=== PATIENT | female | born 1970 | race Caucasian/White ===

== ENCOUNTER 2019-01-21 10:14 | Day surgery (SDC) | payer OTHER ==
[2019-01-15 15:02] VITALS: BMI 47.2
[~2019-01-21 10:14] MED LIST: LIDOCAINE 1% 20 ML VIAL (10MG/ML) FOR IV START INTRADERMA PRN
[2019-01-21 10:46] VITALS: RESP 18; TEMP 98.8
[2019-01-21] MEDS: LACTATED RINGERS 1,000 ML IV SCH ×2 (10:55→11:02)
[2019-01-21] MEDS ORDERED: PROPOFOL 10 MG/ML 20 ML VIAL IV ONE (11:23)
--- NOTE | 2019-01-21 11:58 | P.PCN ---
Date of Procedure: 01/21/19 Description of Procedure: BRIEF HISTORY: Patient is a 48-year-old pleasant female scheduled for an elective colonoscopy as a part of screening for malignant neoplasm of the colon. No prior colonoscopies. No change in bowel habits, blood per rectum or abdominal pain. Family history of colon cancer in her mother was diagnosed in her 70s. PROCEDURE PERFORMED: Colonoscopy with polypectomy. PREOPERATIVE DIAGNOSIS: Screening for malignant neoplasm of the colon, no prior colonoscopy reported. Patient's mother diagnosed with colon cancer in her 70s. ESTIMATED BLOOD LOSS: Minimal. IV sedation per Anesthesia. PROCEDURE: After informed consent was obtained, the patient, was brought into the endoscopy unit. IV sedation was administered by Anesthesia under continuous monitoring. Digital rectal examination was normal. Initially the Olympus CF-190 flexible video colonoscope was then inserted in the rectum, gradually advanced into the cecum without any difficulty. Careful examination was performed as the scope was gradually being withdrawn. Ileocecal valve and the appendiceal orifice were visualized and appeared normal. The terminal ileum was intubated and appeared normal. Prep was excellent. Mucosa of the cecum, ascending colon, transverse colon, descending colon, sigmoid colon, and rectum appeared normal with 1 diminutive 2 mm transverse colon polyp removed with cold forcep polypectomy. Retroflexion was performed in the rectum and no lesions were seen. The patient tolerated the procedure well. IMPRESSION: Diminutive transverse colon polyp removed with forceps polypectomy Normal-appearing colon from rectum to cecum. RECOMMENDATIONS: Findings of this examination were discussed with the patient, her mother and father. Okay to resume diet and medications. Await pathology from polypectomy. Recommend repeat colonoscopy in 5 years for family history of colon cancer pending pathology from polypectomy.
[2019-01-21 12:16] VITALS: BP 137/78; PULSE 67
== END 2019-01-21 12:46 | disposition home or self-care (01) ==
LOC: ORWHC2ENDO 10:14
PROVIDERS: ATTEND Internal Medicine
DX: Z12.11 Encounter for screening for malignant neoplasm of colon (principal); D12.3 Benign neoplasm of transverse colon; I10 Essential (primary) hypertension; E78.5 Hyperlipidemia, unspecified; E07.9 Disorder of thyroid, unspecified; Z80.0 Family history of malignant neoplasm of digestive organs; Z79.890 Hormone replacement therapy; Z79.899 Other long term (current) drug therapy; Z98.890 Other specified postprocedural states; Z90.49 Acquired absence of other specified parts of digestive tract; Z88.0 Allergy status to penicillin
CPT/HCPCS: 81025; 45380; J2704; 88305

== ENCOUNTER → 2021-12-31 | Outpatient (CLI) | payer BC, OTHER ==
--- NOTE | 2022-01-03 19:34 | MM ---
Reason for Exam: Screening (asymptomatic). Last mammogram was performed 3 year(s) and 11 month(s) ago. Patient History: Maternal aunt had breast cancer, age 65. Maternal grandmother had breast cancer. Risk Values: Debra 5 year model risk: 0.7%. NCI Lifetime model risk: 5.7%. Prior Study Comparison: 02/08/2018 Bilateral MG 3D screening mammo w/cad, [facility]. Tissue Density: There are scattered fibroglandular densities. Findings: Analyzed By CAD. Low axillary tail lymph node on the right. Scattered benign punctate calcifications on both sides are generally benign. There is no suspicious group of microcalcifications or new suspicious mass in either breast. Overall Assessment: Benign, BI-RAD 2 Management: Screening Mammogram of both breasts in 1 year. 1. Patient should continue monthly self breast exams. 2. A clinical breast exam by your physician is recommended on an annual basis. 3. This exam should not preclude additional follow-up of suspicious palpable abnormalities. Electronically signed and approved by: Tee Fuentes M.D. Radiologist
== END | disposition home or self-care (01) ==
LOC: RADMAMWWP 15:51
PROVIDERS: ATTEND Family Medicine
DX: Z12.31 Encounter for screening mammogram for malignant neoplasm of breast (principal); Z80.3 Family history of malignant neoplasm of breast
CPT/HCPCS: 77063; 77067

== ENCOUNTER 2022-01-18 11:43 | Emergency (ER) | payer BC ==
[2022-01-18 11:49] VITALS: TEMP 97
[2022-01-18] MEDS ORDERED: SODIUM CHLORIDE 0.9% 1,000 ML IV ONE (12:00)
[2022-01-18 12:37] LABS: Basophils # (A) 0.1 k/uL (0-0.2); Basophils % (A) 1 %; Eosinophils # (A) 0.1 k/uL (0-0.7); Eosinophils % (A) 1 %; HCT 42.5 % (34.0-46.0); HGB 14.2 gm/dL (11.4-16.0); Lymphocytes % (A) 27 %; MCH 29.3 pg (25.0-35.0); MCHC 33.4 g/dL (31.0-37.0); MCV 87.6 fL (80.0-100.0); Mean Platelet Volume 7.7; Monocytes # (A) 0.3 k/uL (0-1.0); Monocytes % (A) 5 %; Neutrophils # (A) 4.7 k/uL (1.3-7.7); Neutrophils % (A) 65 %; Platelet Count 275 k/uL (150-450); RBC 4.85 m/uL (3.80-5.40); RDW 12.2 % (11.5-15.5); WBC 7.2 k/uL (3.8-10.6)
[2022-01-18 12:50] LABS: Appearance,Urine Cloudy (Clear); Bilirubin,Urine Negative (Negative); Blood,Urine Large (Negative); Color,Urine Light Red; Glucose,Urine (UA) Negative (Negative); Ketones,Urine Negative (Negative); Leukocyte Esterase,Urine Moderate (Negative); Nitrite,Urine Negative (Negative); PH, Urine 5.5 (5.0-8.0); Protein,Urine 1+ (Negative); RBC,Urine >182 /hpf (0-5); Specific Gravity,Urine 1.017 (1.001-1.035); Urobilinogen,Urine <2.0 mg/dL (<2.0); WBC,Urine 17 /hpf (0-5)
[2022-01-18 12:59] LABS: ALT 26 U/L (4-34); AST 25 U/L (14-36); African American GFR (CKD) >90 (>60 ml/min/1.73 sqM); Albumin 4.5 g/dL (3.5-5.0); Alkaline Phosphatase 99 U/L (38-126); Anion Gap 9 mmol/L; Blood Urea Nitrogen 16 mg/dL (7-17); Calcium 8.9 mg/dL (8.4-10.2); Carbon Dioxide 24 mmol/L (22-30); Chloride 105 mmol/L (98-107); Glucose 124 mg/dL (74-99); Non-African American GFR(CKD) >90 (>60 ml/min/1.73 sqM); Sodium 138 mmol/L (137-145); Total Protein 7.3 g/dL (6.3-8.2)
[2022-01-18 13:02] LABS: Partial Thromboplastin Time 23.6 sec (22.0-30.0); Prothrombin Time 10.6 sec (9.0-12.0)
[2022-01-18 13:04] LABS: Potassium 4.9 mmol/L (3.5-5.1)
--- NOTE | 2022-01-18 13:12 | ED ---
General Adult HPI - General Chief complaint: Vaginal Bleeding Stated complaint: vaginal bleeding Time Seen by Provider: 01/18/22 11:59 Source: patient Mode of arrival: wheelchair Limitations: no limitations - History of Present Illness Initial comments: Patient is a 51-year-old female presenting with chief complaint of vaginal bleeding. Patient was being seen in the [facility] by Dr. Coleman for an annual exam. Patient has never seen an EVALUATION SPECIALIST, she has never been , and she has never had intercourse. She believes that her last period was 6 months ago or greater. Patient states that last Monday she was experiencing heavy vaginal bleeding, she has had episodes like this in the past, states that has never had a formal diagnosis for this. Dr. Coleman states that when he started the bimanual exam patient began heavily bleeding. He expressed concern for possible mass felt on bimanual exam. Patient was sent down here from [facility]. By time of arrival patient states that bleeding had stopped. She is asymptomatic. No abdominal pain, chest pain, difficulty breathing, palpitations, weakness, dizziness, diaphoresis, nausea, vomiting, dysuria, hematuria, flank pain, fever, chills. - Related Data Home Medications Medication Instructions Recorded Confirmed Atorvastatin Calcium 20 mg PO HS 01/18/22 01/18/22 Levothyroxine Sodium [Synthroid] 50 mcg PO DAILY 01/18/22 01/18/22 lisinopriL [Zestril] 20 mg PO DAILY 01/18/22 01/18/22 Allergies Allergy/AdvReac Type Severity Reaction Status Date / Time Penicillins AdvReac states Verified 01/18/22 13:17 "does not take r/t both parents having allergy" Review of Systems ROS Statement: Those systems with pertinent positive or pertinent negative responses have been documented in the HPI. ROS Other: All systems not noted in ROS Statement are negative. Past Medical History Past Medical History: Hyperlipidemia, Hypertension, Thyroid Disorder History of Any Multi-Drug Resistant Organisms: None Reported Past Surgical History: Cholecystectomy, Orthopedic Surgery Additional Past Surgical History / Comment(s): left knee arthroscopy Past Anesthesia/Blood Transfusion Reactions: No Reported Reaction Past Psychological History: No Psychological Hx Reported Smoking Status: Never smoker Past Alcohol Use History: Occasional Past Drug Use History: None Reported - Past Family History Mother Family Medical History: Cancer Additional Family Medical History / Comment(s): colon General Exam Limitations: no limitations General appearance: alert, in no apparent distress Head exam: Present: atraumatic, normocephalic, normal inspection Eye exam: Present: normal appearance Neck exam: Present: normal inspection, full ROM Respiratory exam: Present: normal lung sounds bilaterally. Absent: respiratory distress, wheezes, rales, rhonchi, stridor Cardiovascular Exam: Present: regular rate, normal rhythm, normal heart sounds. Absent: systolic murmur, diastolic murmur, rubs, gallop, clicks Neurological exam: Present: alert, oriented X3, CN II-XII intact Psychiatric exam: Present: normal affect, normal mood Skin exam: Present: warm, dry, intact, normal color. Absent: rash Course Vital Signs 01/18/22 01/18/22 01/18/22 11:46 13:15 14:55 Temperature 97 F L Pulse Rate 85 71 94 Respiratory 20 18 18 Rate Blood Pressure 153/78 141/76 148/76 O2 Sat by Pulse 99 97 95 Oximetry 01/18/22 15:49 Temperature Pulse Rate 92 Respiratory 18 Rate Blood Pressure 142/84 O2 Sat by Pulse 96 Oximetry Medical Decision Making - Medical Decision Making Patient is a 51-year-old female presenting from the [facility] woman sent her after spontaneous heavy vaginal bleeding and irregular bimanual exam performed by Dr. Coleman. Upon arrival to the ER patient states bleeding has stopped, on exam ination I see no evidence of current bleeding. Patient denies any abdominal pain, lightheadedness, chest pain, difficulty breathing. Lab work shows hemoglobin 14.2. WBC 7.2. CMP and coags are unremarkable. Urine is positive for blood, due to vaginal bleeding. Patient is blood type A positive. Ultrasound shows signs of soft tissue fullness in the left adnexal region, interpreted by myself. I discussed these findings with EVALUATION SPECIALIST micromatic hone operator Dr. Owens, who advised that the patient should follow-up in the office, no need for further testing at this time. Educated patient on these findings and the importance of prompt follow-up. Patient states that her EVALUATION SPECIALIST Dr. Coleman does not perform surgery, she is also provided with the contact information for EVALUATION SPECIALIST on-call Dr. Owens. Follow-up with PCP. Report back to ER with any new or worsening symptoms. Discussed return parameters and answered all questions. Patient conveyed verbal understanding and agreed to the plan. I discussed this case in detail with my attending Dr. Bravo - Lab Data Result diagrams: 01/18/22 12:26 01/18/22 12:26 Lab Results 01/18/22 01/18/22 01/18/22 Range/Units 12:26 12:26 12:26 WBC 7.2 (3.8-10.6) k/uL RBC 4.85 (3.80-5.40) m/uL Hgb 14.2 (11.4-16.0) gm/dL Hct 42.5 (34.0-46.0) % MCV 87.6 (80.0-100.0) fL MCH 29.3 (25.0-35.0) pg MCHC 33.4 (31.0-37.0) g/dL RDW 12.2 (11.5-15.5) % Plt Count 275 (150-450) k/uL MPV 7.7 Neutrophils % 65 % Lymphocytes % 27 % Monocytes % 5 % Eosinophils % 1 % Basophils % 1 % Neutrophils # 4.7 (1.3-7.7) k/uL Lymphocytes # 2.0 (1.0-4.8) k/uL Monocytes # 0.3 (0-1.0) k/uL Eosinophils # 0.1 (0-0.7) k/uL Basophils # 0.1 (0-0.2) k/uL PT (9.0-12.0) sec INR (<1.2) APTT (22.0-30.0) sec Sodium 138 (137-145) mmol/L Potassium 4.9 (3.5-5.1) mmol/L Chloride 105 (98-107) mmol/L Carbon Dioxide 24 (22-30) mmol/L Anion Gap 9 mmol/L BUN 16 (7-17) mg/dL Creatinine 0.69 (0.52-1.04) mg/dL Est GFR (CKD-EPI)AfAm >90 (>60 ml/min/1.73 sqM) Est GFR (CKD-EPI)NonAf >90 (>60 ml/min/1.73 sqM) Glucose 124 H (74-99) mg/dL Calcium 8.9 (8.4-10.2) mg/dL Total Bilirubin 1.0 (0.2-1.3) mg/dL AST 25 (14-36) U/L ALT 26 (4-34) U/L Alkaline Phosphatase 99 (38-126) U/L Total Protein 7.3 (6.3-8.2) g/dL Albumin 4.5 (3.5-5.0) g/dL Urine Color Light Red Urine Appearance Cloudy H (Clear) Urine pH 5.5 (5.0-8.0) Ur Specific [place] 1.017 (1.001-1.035) Urine Protein 1+ H (Negative) Urine Glucose (UA) Negative (Negative) Urine Ketones Negative (Negative) Urine Blood Large H (Negative) Urine Nitrite Negative (Negative) Urine Bilirubin Negative (Negative) Urine Urobilinogen <2.0 (<2.0) mg/dL Ur Leukocyte Esterase Moderate H (Negative) Urine RBC >182 H (0-5) /hpf Urine WBC 17 H (0-5) /hpf Blood Type Blood Type Confirm Blood Type Recheck Bld Type Recheck Status Antibody Screen Spec Expiration Date 01/18/22 01/18/22 01/18/22 Range/Units 12:26 12:35 12:40 WBC (3.8-10.6) k/uL RBC (3.80-5.40) m/uL Hgb (11.4-16.0) gm/dL Hct (34.0-46.0) % MCV (80.0-100.0) fL MCH (25.0-35.0) pg MCHC (31.0-37.0) g/dL RDW (11.5-15.5) % Plt Count (150-450) k/uL MPV Neutrophils % % Lymphocytes % % Monocytes % % Eosinophils % % Basophils % % Neutrophils # (1.3-7.7) k/uL Lymphocytes # (1.0-4.8) k/uL Monocytes # (0-1.0) k/uL Eosinophils # (0-0.7) k/uL Basophils # (0-0.2) k/uL PT 10.6 (9.0-12.0) sec INR 1.0 (<1.2) APTT 23.6 (22.0-30.0) sec Sodium (137-145) mmol/L Potassium (3.5-5.1) mmol/L Chloride (98-107) mmol/L Carbon Dioxide (22-30) mmol/L Anion Gap mmol/L BUN (7-17) mg/dL Creatinine (0.52-1.04) mg/dL Est GFR (CKD-EPI)AfAm (>60 ml/min/1.73 sqM) Est GFR (CKD-EPI)NonAf (>60 ml/min/1.73 sqM) Glucose (74-99) mg/dL Calcium (8.4-10.2) mg/dL Total Bilirubin (0.2-1.3) mg/dL AST (14-36) U/L ALT (4-34) U/L Alkaline Phosphatase (38-126) U/L Total Protein (6.3-8.2) g/dL Albumin (3.5-5.0) g/dL Urine Color Urine Appearance (Clear) Urine pH (5.0-8.0) Ur Specific [place] (1.001-1.035) Urine Protein (Negative) Urine Glucose (UA) (Negative) Urine Ketones (Negative) Urine Blood (Negative) Urine Nitrite (Negative) Urine Bilirubin (Negative) Urine Urobilinogen (<2.0) mg/dL Ur Leukocyte Esterase (Negative) Urine RBC (0-5) /hpf Urine WBC (0-5) /hpf Blood Type A Positive Blood Type Confirm A Positive Blood Type Recheck No Previous Record Bld Type Recheck Status CABO Indicated Antibody Screen NEGATIVE Spec Expiration Date 01/21/20222325 Disposition Clinical Impression: Ovarian mass, Dysfunctional uterine bleeding Disposition: HOME SELF-CARE Condition: Fair Instructions (If sedation given, give patient instructions): Abnormal (Dy sfunctional) Uterine Bleeding (ED) Additional Instructions: Follow-up with EVALUATION SPECIALIST. Report back to ER with any new or worsening symptoms. Ideally he will follow-up with your EVALUATION SPECIALIST, if you are unable to I have provided another suggestion. Is patient prescribed a controlled substance at d/c from ED?: No Referrals: Fara Mccoy DO [Primary Care Provider] - 1-2 days River Coleman MD [STAFF PHYSICIAN] - 1-2 days Diana Owens MD [STAFF PHYSICIAN] - 1-2 days Time of Disposition: 15:31
[2022-01-18 13:17] VITALS: RESP 18
--- NOTE | 2022-01-18 14:27 | US ---
EXAMINATION TYPE: US pelvic complete DATE OF EXAM: 01/18/2022 COMPARISON: NONE CLINICAL HISTORY: heavy vaginal bleeding. Heavy vaginal bleeding. LMP unknown. G0. TECHNIQUE: Transabdominal (TA). Transabdominal sonographic images of the pelvis were acquired. Tra nsvaginal sonographic images were deferred per order. Date of LMP: Unknown. EXAM MEASUREMENTS: Uterus: 11.3 x 7.5 x 6.3 cm Endometrial Stripe: 1.66 cm Right Ovary: Not seen Left Ovary: Not seen with certainty 1. Uterus: Retroverted Appears heterogeneous. 2. Endometrium: Measures 1.66 cm, LMP unknown. 3. Right Ovary: Not seen 4. Left Ovary: Not seen with certainty. 5. Bilateral Adnexa: Hypoechoic area seen left adnexa versus attached to the uterus, versus possible enlarged left ovary (volume greater than 21 ml). Area measures 4.7 x 4.5 x 3.7 cm and arterial and v enous flow is seen within. 6. Posterior cul-de-sac: Appears wnl Urinary bladder is unremarkable. IMPRESSION: 1. There is a solid soft tissue fullness in the left adnexal region. No Definite confirmation this is left ovary. Follow-up is recommended. Consider MRI.
[2022-01-18 15:51] VITALS: BP 142/84; PULSE 92
[2022-01-19 13:01] LABS: C. trachomatis,PCR Negative (Neg,Equiv); Chlamydia trachomatis Source Urine; N. gonorrhoeae,PCR Negative (Neg,Equiv); Neisseria Source Urine
== END 2022-01-18 15:58 | disposition home or self-care (01) ==
LOC: EC 11:43
DX: N83.202 Unspecified ovarian cyst, left side (principal); I10 Essential (primary) hypertension; E07.9 Disorder of thyroid, unspecified; E78.5 Hyperlipidemia, unspecified; Z88.0 Allergy status to penicillin; Z79.890 Hormone replacement therapy; Z79.899 Other long term (current) drug therapy
CPT/HCPCS: 36415; 76856; 80053; 81001; 85025; 85610; 85730; 86850; 86900; 86901; 87086; 87491; 87591; 96360; 96361; 99284

== ENCOUNTER → 2022-01-18 | Outpatient (CLI) | payer BC ==
[2022-01-18 10:02] VITALS: BP 158/87; PULSE 84; RESP 18; TEMP 98.7
--- NOTE | 2022-01-18 11:52 | P.HPOB ---
History of Present Illness H&P Date: 01/18/22 Chief Complaint: Heavy vaginal bleeding 2 weeks ago. This is a 51-year-old G0 with an LNMP of 2019. The patient is here to establish with this office. She states she has never been sexually active and has never had a pelvic exam in her lifetime. Her menstrual periods were regular every month up until about 3 years ago. Periods then became very light and just spotting, but would occur about monthly. During the past 1-1/2 years, menstrual periods became irregular and the spotting would only occur when she did more strenuous activity. Between June 2021 and now she did not have any vaginal bleeding except for 1 heavy episode 2 weeks ago. She states she had sudden h eavy bleeding from the vagina that seemed to decrease as the day when on. The bleeding then stopped after about 1 day. She states she has not had any bleeding today. She denies hot flashes. She denies inserting anything into the vagina. Review of Systems The patient's weight has been stable over the last year. She denies respiratory, cardiac, or G.I. problems. Past Medical History Past Medical History: Hyperlipidemia, Hypertension, Thyroid Disorder Additional Past Medical History / Comment(s): Hypothyroidism. PAST CMM INSPECTOR HISTORY: She has no history of STDs. She states she has never been sexually active and has never had a pelvic exam in the past. History of Any Multi-Drug Resistant Organisms: None Reported Past Surgical History: Cholecystectomy, Orthopedic Surgery Additional Past Surgical History / Comment(s): left knee arthroscopy. Colonoscopy 2018(next after 5yr) Past Anesthesia/Blood Transfusion Reactions: No Reported Reaction Past Psychological History: No Psychological Hx Reported Smoking Status: Never smoker Past Alcohol Use History: Occasional (1 or 2 per month) Past Drug Use History: None Reported Additional History: She is single and has never been sexually active. She lives on her own. 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 - Past Family History Mother Family Medical History: Cancer Additional Family Medical History / Comment(s): colon cancer. Maternal aunt and maternal grandmother had breast cancer. Father Family Medical History: No Reported History Medications and Allergies Home Medications Medication Instructions Recorded Confirmed Type Atorvastatin [Lipitor] 10 mg PO DAILY 01/04/19 01/18/22 History Levothyroxine Sodium [Synthroid] 100 mcg PO DAILY 01/04/19 01/18/22 History lisinopriL [Zestril] 5 mg PO QAM 01/04/19 01/18/22 History Allergies Allergy/AdvReac Type Severity Reaction Status Date / Time Penicillins AdvReac states Verified 01/18/22 09:58 "does not take r/t both parents having allergy" Exam Vital Signs Temp Pulse Resp BP Pulse Ox 01/18/22 09:59 98.7 F 84 18 158/87 98 Intake and Output 01/17/22 01/18/22 01/18/22 22:59 06:59 14:59 Other: Weight 129.274 kg Height 5 feet 5 inches, weight 285 pounds, BMI 47.4. This is a well-developed well-nourished heavyset white female who is alert and oriented times 3 in no acute distress. HEENT: Within normal limits. NECK: Supple without mass or thyromegaly. CHEST AND LUNGS: Clear to auscultation. HEART: Regular rate and rhythm. BREASTS: Are without mass or discharge. AXILLARY EXAM: Negative for adenopathy. BACK: Negative for CVA tenderness. ABDOMEN: Soft, obese, nontender, without palpable masses. PELVIC EXAM: Normal external genitalia. The introitus is virginal with the hymenal ring opening measuring approximately 2 cm. Upon initial exam, no vaginal bleeding was noted at the external genitalia. A Kovacs speculum was painlessly inserted into the vagina and sudden bright red bleeding was noted from the vagina. The vagina could not be visualized due to the immediate bleeding. Bimanual examination: There seems to be an abnormal mass in the vagina which is firm and irregular and nontender. The mass does not seem to be consistent with a normal cervix. An approximate size of the mass would be 4 x 3 x 5 cm. Because of her size, the uterus could not be palpated. No adnexal masses were palpated, but bimanual examination is very limited secondary to her size. There is active bleeding with a 4 cm blood clot being removed at the time of the exam. RECTAL EXAM: Rectal exam was not performed because of the acute vaginal bleeding noted. EXTREMITIES: Nontender. The patient remains alert and oriented 3. Repeat vital signs include a blood pressure of 146/85, pulse of 91 and pulse oximeter of 98%.(11:22am) IMPRESSION: 1. 51-year-old perimenopausal virginal female who has never had a pelvic exam in her lifetime with recent heavy vaginal bleeding 2 weeks ago and sudden acute vaginal bleeding when a Kovacs speculum was inserted into the vagina. There seems to be an abnormal vaginal mass which could be vaginal or cervical in nature. Bleeding is most likely coming from a friable abnormal neoplasm in the vagina. I do not believe the bleeding came from the hymenal ring. Endometrial neoplasia would also be in the differential diagnosis. PLAN: 1. The patient has been sent to the emergency room at [facility]. I have spoken with the emergency room doctor, Dr. Bravo. I have recommended that she see the INFANTRY INDIRECT FIRE CREWMEMBER doctor of the month software application tester to be evaluated, and if acute vaginal bleeding persists, for possible surgical intervention. 2. I was informed that [facility] INFANTRY INDIRECT FIRE CREWMEMBER is covering the emergency room and I have left messages with their office hoping I can discuss this unusual case with the doctor software application tester.
== END ==
LOC: WWCWWP 09:49
PROVIDERS: ATTEND Obstetrics & Gynecology
DX: Z01.419 Encounter for gynecological examination (general) (routine) without abnormal findings (principal); Z88.0 Allergy status to penicillin

== ENCOUNTER → 2022-02-24 | Outpatient (CLI) | payer BC ==
--- NOTE | 2022-02-26 10:22 | MR ---
EXAMINATION TYPE: MR pelvis wo/w con DATE OF EXAM: 02/24/2022 COMPARISON: 01/18/2022 ultrasound CLINICAL INDICATION:Female, 52 years old with history of N88.8 NONINFLAMMATORY DISORDERS OF CERVIX UT YOJANA; TECHNIQUE: Triplane multisequence imaging was performed of the pelvis. IV Contrast: 13ML cc Gadavist FINDINGS: Reproductive: The uterus is anteverted in position. Arcuate morphology to the uterine fundus. Uterus measures 6.6 x 5.4 x 8.3 cm. Multiple uterine fibroids are identified, the largest on the left measuring up to 6.1 x 5.0 cm and on the right measuring 3.6 x 3.4 cm both which are slightly exophytic. Both demonstrate postcontrast enhancement. There is soft tissue which is thought to be originating from the endometrium and extending down throu gh the cervical canal and into the vagina. Soft tissue extends approximately 4.5 cm from the external cervical os up into the the endometrium. Overall this area measures approximately 5.6 x 6.5 x 5.5 cm . There is postcontrast enhancement of this lesion. This lesion does not definitively invade through cervix or vagina wu. The left ovary measures 2.3 x 1.8 x 1.2 cm. The right ovary measures 2.2 x 1.5 x 1.5 cm. Bladder: Unremarkable. Bowel: Unremarkable as visualized. Peritoneum: A small amount of free fluid in the pelvis. Lymph nodes: Prominent nonenlarged right common iliac lymph node measuring up to 6 mm Vasculature: Unremarkable. Musculoskeletal: Bone marrow signal is within normal signal intensity. Abdominal wall/soft tissues: Unremarkable. IMPRESSION: 1. Enhancing mass which extends from the endometrium down into and through the cervical canal into t he vagina. Findings concerning for malignancy. Visualization with tissue sampling is recommended. No definitive invasion into the vagina, cervix, or uterus. Single nonspecific mildly enlarged right exte rnal iliac lymph node. Gynecology oncology consultation recommended. 2. Fibroid uterus.
== END | disposition home or self-care (01) ==
LOC: RADMRIMAIN 12:16
PROVIDERS: ATTEND Obstetrics & Gynecology
DX: D25.9 Leiomyoma of uterus, unspecified (principal); N88.8 Other specified noninflammatory disorders of cervix uteri; N94.89 Other specified conditions associated with female genital organs and menstrual cycle; N93.9 Abnormal uterine and vaginal bleeding, unspecified; R59.0 Localized enlarged lymph nodes
CPT/HCPCS: 72197; A9585

== ENCOUNTER → 2023-06-05 | Outpatient (CLI) | payer BC ==
--- NOTE | 2023-06-05 23:28 | MM ---
Reason for Exam: Screening (asymptomatic). Last mammogram was performed 1 year(s) and 5 month(s) ago. Patient History: Menarche at age 11. Patient has no children. Left ovary removed at age 53. Right ovary removed at age 53. Hysterectomy at age 53. Postmenopausal. Maternal aunt had breast cancer, age 65. Maternal grandmother had breast cancer, age 65. Risk Values: Debra 5 year model risk: 1.3%. NCI Lifetime model risk: 9.1%. Prior Study Comparison: 02/08/2018 Bilateral MG 3D screening mammo w/cad, [facility]. 12/31/2021 Bilateral MG 3D screening mammo w/cad, [facility]. Tissue Density: There are scattered areas of fibroglandular density. Findings: Analyzed By CAD. The pattern is symmetrical. No significant interval change is evident. Punctate calcifications are scattered through the right breast. Chronic nodularity is within the right breast. Within the left breast craniocaudal view there is a new nodule measuring 0.4 cm located 6 cm from the nipple. Compression views recommended for possible summation density. Right breast:No suspicious groups of microcalcifications, spiculated or lobular masses, architectural distortion or other secondary signs of malignancy are mammographically apparent. Overall Assessment: Incomplete: need additional imaging evaluation, BI-RAD 0 Management: Diagnostic Mammogram of the left breast. A negative mammogram report should not preclude additional follow up of suspicious palpable abnormalities. Patient should continue monthly self breast exam. A clinical breast exam by your physician is recommended on an annual basis and results should be correlated with mammographic findings. Electronically signed and approved by: Quentin Stone D.O. Radiologis
== END | disposition home or self-care (01) ==
LOC: RADMAMWWP 15:56
PROVIDERS: ATTEND Obstetrics & Gynecology
DX: Z12.31 Encounter for screening mammogram for malignant neoplasm of breast (principal); Z80.3 Family history of malignant neoplasm of breast; Z78.0 Asymptomatic menopausal state
CPT/HCPCS: 77063; 77067

== ENCOUNTER → 2023-06-07 | Outpatient (CLI) | payer BC ==
--- NOTE | 2023-06-07 07:39 | MM ---
Reason for Exam: Additional evaluation requested from abnormal screening. Last screening mammogram was performed less than 1 month ago. Patient History: Menarche at age 11. Patient has no children. Left ovary removed at age 53. Right ovary removed at age 53. Hysterectomy at age 53. Postmenopausal. Maternal aunt had breast cancer, age 65. Maternal grandmother had breast cancer, age 65. Risk Values: Debra 5 year model risk: 1.3%. NCI Lifetime model risk: 9.1%. Prior Study Comparison: 02/08/2018 Bilateral MG 3D screening mammo w/cad, [facility]. 12/31/2021 Bilateral MG 3D screening mammo w/cad, [facility]. 06/05/2023 Bilateral MG 3D screening mammo w/cad, [facility]. Tissue Density: Left: There are scattered areas of fibroglandular density. Findings: Analyzed By CAD. Under compression there may be a small persistent density on the craniocaudal view. A discrete abnormality is not identified on the medial lateral. Suspicious be at the 11 to 12:00 position 6 cm from the nipple. Ultrasound is recommended for additional workup. Overall Assessment: Incomplete: need additional imaging evaluation, BI-RAD 0 Management: Diagnostic Breast Ultrasound of the left breast. A negative mammogram report should not preclude additional follow up of suspicious palpable abnormalities. Patient should continue monthly self breast exam. A clinical breast exam by your physician is recommended on an annual basis and results should be correlated with mammographic findings. Note on Debra scores and lifetime risk: 1. A Debra score greater than 3% is considered moderate risk. If this is the case, consider specialist referral to assess eligibility for a risk reducing agent. 2. If overall lifetime risk for the development of breast cancer is 20% or higher, the patient may qualify for future screening with alternating mammogram and breast MRI. Electronically signed and approved by: Quentin Stone D.O. Radiologis
--- NOTE | 2023-06-07 08:01 | USB ---
Reason for Exam: Additional evaluation requested from abnormal screening. Patient History: Menarche at age 11. Patient has no children. Left ovary removed at age 53. Right ovary removed at age 53. Hysterectomy at age 53. Postmenopausal. Maternal aunt had breast cancer, age 65. Maternal grandmother had breast cancer, age 65. Risk Values: Debra 5 year model risk: 1.3%. NCI Lifetime model risk: 9.1%. Technique: Method: Targeted. Doppler: Color. Patient Position: Supine. Prior Study Comparison: 02/08/2018 Bilateral MG 3D screening mammo w/cad, [facility]. 12/31/2021 Bilateral MG 3D screening mammo w/cad, [facility]. 06/05/2023 Bilateral MG 3D screening mammo w/cad, [facility]. Findings: The upper inner quadrant of the left breast, the axilla of the left breast and the retroareolar of the left breast were scanned. 4 cm nabothian 11:00 position is a very tiny cyst. No suspicious solid masses are evident.. Overall Assessment: Benign, BI-RAD 2 Management: Diagnostic Mammogram of the left breast in 6 months. A clinical breast exam by your physician is recommended on an annual basis and results should be correlated with mammographic findings. This exam should not preclude additional follow-up of suspicious palpable abnormalities. Results were given to the patient verbally at the time of exam. Electronically signed and approved by: Tee Fuentes M.D. Radiologist
== END | disposition home or self-care (01) ==
LOC: RADMAMWWP 07:15
PROVIDERS: ATTEND Obstetrics & Gynecology
DX: R92.8 Other abnormal and inconclusive findings on diagnostic imaging of breast (principal); Z78.0 Asymptomatic menopausal state; Z80.3 Family history of malignant neoplasm of breast
CPT/HCPCS: 77061; 77065

== ENCOUNTER → 2023-12-20 | Outpatient (CLI) | payer BC ==
--- NOTE | 2023-12-20 09:14 | MM ---
Reason for Exam: Follow-up at short interval from prior study. Last screening mammogram was performed 6 month(s) ago. Patient History: Menarche at age 11. Patient has no children. Left ovary removed at age 53. Right ovary removed at age 53. Hysterectomy at age 53. Postmenopausal. Maternal aunt had breast cancer, age 65. Maternal grandmother had breast cancer, age 65. Risk Values: Debra 5 year model risk: 1.3%. NCI Lifetime model risk: 9.1%. Prior Study Comparison: 12/31/2021 Bilateral MG 3D screening mammo w/cad, [facility]. 06/05/2023 Bilateral MG 3D screening mammo w/cad, [facility]. 06/07/2023 Left MG 3D work up w/cad , [facility]. Tissue Density: Left: There are scattered areas of fibroglandular density. Findings: Analyzed By CAD. Chronic low-density nodularity. No significant change from prior exams. Overall Assessment: Incomplete: need additional imaging evaluation, BI-RAD 0 Management: Diagnostic Breast Ultrasound of the left breast. [facility], , 12/20/2023 9:11 AM. Electronically signed and approved by: Tee Fuentes M.D. Radiologist
--- NOTE | 2023-12-20 09:29 | USB ---
Reason for Exam: Follow-up at short interval from prior study. Patient History: Menarche at age 11. Patient has no children. Left ovary removed at age 53. Right ovary removed at age 53. Hysterectomy at age 53. Postmenopausal. Maternal aunt had breast cancer, age 65. Maternal grandmother had breast cancer, age 65. Risk Values: Debra 5 year model risk: 1.3%. NCI Lifetime model risk: 9.1%. Technique: Method: Targeted. Prior Study Comparison: 12/31/2021 Bilateral MG 3D screening mammo w/cad, [facility]. 06/05/2023 Bilateral MG 3D screening mammo w/cad, [facility]. 06/07/2023 Left MG 3D work up w/cad , [facility]. Findings: The upper inner quadrant of the left breast, the axilla of the left breast and the retroareolar of the left breast were scanned. Targeted ultrasound left breast 10:00 to 12:00 position including scanning of the subareolar region and axilla. At the 11:00 position, redemonstrated tiny 2 mm cyst located 4 cm from the nipple. No other solid or cystic lesion. Overall Assessment: Benign, BI-RAD 2 Management: Screening Mammogram of both breasts in 6 months. A clinical breast exam by your physician is recommended on an annual basis and results should be correlated with mammographic findings. This exam should not preclude additional follow-up of suspicious palpable abnormalities. Results were given to the patient verbally at the time of exam. [facility], , 12/20/2023 9:27 AM. Electronically signed and approved by: Tee Fuentes M.D. Radiologist
== END | disposition home or self-care (01) ==
LOC: RADMAMWWP 08:42
PROVIDERS: ATTEND Family Medicine
CPT/HCPCS: 77061; 77065

== ENCOUNTER 2024-01-26 07:50 | Day surgery (SDC) | payer BC ==
[2024-01-26] MEDS: IV FLUID CONTINUATION 1,000 ML IV ONE (08:05)
[2024-01-26 08:18] VITALS: TEMP 97.3
[2024-01-26] MEDS: LACTATED RINGERS 1,000 ML IV SCH (08:18)
[2024-01-26 08:39] LABS: Glucose,Whole Blood 137 mg/dL (70-110)
[2024-01-26] MEDS ORDERED: PROPOFOL 10 MG/ML 20 ML VIAL IV ONE (09:18)
[2024-01-26] MEDS ORDERED: LIDOCAINE 1% INJ 10MG/ML (20 ML MDV) ONE (09:18)
--- NOTE | 2024-01-26 09:42 | P.PCN ---
Date of Procedure: 01/26/24 Procedure(s) Performed: BRIEF HISTORY: Patient is a 83-year-old pleasant white female scheduled for an elective colonoscopy as a part of evaluation by history colon polyps and family history of colon cancer. Her mother was diagnosed with colon cancer at age 70. PROCEDURE PERFORMED: Colonoscopy. PREOPERATIVE DIAGNOSIS: History of colon polyps and family history of colon cancer. IV sedation per Anesthesia. PROCEDURE: After informed consent was obtained, the patient, was brought into the endoscopy unit. IV sedation was administered by Anesthesia under continuous monitoring. Digital rectal examination was normal. Initially the Olympus CF-160 flexible video colonoscope was then inserted in the rectum, gradually advanced into the cecum without any difficulty. Careful examination was performed as the scope was gradually being withdrawn. Ileocecal valve and the appendiceal orifice were visualized and appeared normal. Prep was excellent. Mucosa of the cecum, ascending colon, transverse colon, descending colon, sigmoid colon, and rectum appeared normal. Retroflexion was performed in the rectum and no lesions were seen. The patient tolerated the procedure well. IMPRESSION: Normal-appearing colon from rectum to cecum times of colorectal neoplasia. RECOMMENDATIONS: Findings of this examination were discussed with the patient as well as her family. She was advised to have repeat screening colonoscopy in 5 years because of the family history of colon cancer.
[2024-01-26 09:46] VITALS: RESP 16
[2024-01-26 10:01] VITALS: BP 133/71; PULSE 73
== END 2024-01-26 10:25 | disposition home or self-care (01) ==
LOC: ORWHC2ENDO 07:50
PROVIDERS: ATTEND Internal Medicine Gastroenterology
DX: Z12.11 Encounter for screening for malignant neoplasm of colon (principal); I10 Essential (primary) hypertension; E78.5 Hyperlipidemia, unspecified; E11.9 Type 2 diabetes mellitus without complications; E03.9 Hypothyroidism, unspecified; E66.01 Morbid (severe) obesity due to excess calories; Z79.84 Long term (current) use of oral hypoglycemic drugs; Z79.890 Hormone replacement therapy; Z79.899 Other long term (current) drug therapy; Z90.49 Acquired absence of other specified parts of digestive tract; Z90.710 Acquired absence of both cervix and uterus; Z88.0 Allergy status to penicillin; Z80.0 Family history of malignant neoplasm of digestive organs; Z86.0100 Personal history of colon polyps, unspecified
CPT/HCPCS: 45378; J2003; J2704